=== PATIENT | female | born 1955 | race African-American/Black ===

== ENCOUNTER → 2016-11-12 | Outpatient (CLI) | payer BC ==
[2016-11-12 14:44] LABS: BILIRUBIN,URINE NEGATIVE (NEG); GLUCOSE,URINE NEGATIVE (NEG); NITRITE,URINE POSITIVE (NEG); PROTEIN,URINE NEGATIVE (NEG-TRACE)
[2016-11-12 15:07] LABS: BACTERIA,URINE MANY /HPF (0-FEW); RBC,URINE 0 /HPF (0-2); SQUAMOUS EPITHELIAL CELL,UR MANY /LPF
== END | disposition home or self-care (01) ==
LOC: LAB 14:15
PROVIDERS: ATTEND Urology
DX: R31.9 Hematuria, unspecified (principal)
CPT/HCPCS: 81001; 87086

== ENCOUNTER → 2016-12-03 | Outpatient (CLI) | payer BC ==
[~2016-12-03] MED LIST: IOHEXOL 300 MG/ML 75 ML VIAL ONE
[2016-12-03 14:02] LABS: CREATININE 1.1 mg/dL (0.6-1.0); GFR 61.5
--- NOTE | 2016-12-03 17:07 | RAD ---
Examination: CT of the abdomen pelvis without and with IV contrast History: History of foul-smelling urine and breath, dark-colored urine Comparison: None available Technique: Axial CT images of the abdomen pelvis were performed without and with IV contrast. Coronal sagittal reformats are performed. Delayed axial images were performed PQRS Compliance Statement: One or more of the following individualized dose reduction techniques were utilized for this examination: 1. Automated exposure control 2. Adjustment of the mA and/or kV according to patient size 3. Use of iterative reconstruction technique Findings: Minimal bibasal lung atelectasis. No evidence of free air identified in the abdomen. The visualized liver, spleen, adrenals grossly appears unremarkable. The gallbladder is mildly distended. No evidence of intrarenal collecting system calculi identified. Small hiatal hernia. The stomach is mildly distended. The small bowel is nondilated. Feces and gas noted throughout the colon. Few sigmoid colon diverticulosis. The visualized pancreas grossly appears unremarkable. The urinary bladder is mildly distended. No evidence of filling defect identified in the urinary bladder. Mild degenerative changes lumbar spine. Moderate aortic atherosclerosis. Subcutaneous moderate fat stranding identified in the anterior abdominal wall in the left lower quadrant. Impression: 1. No acute intra-abdominal findings. There is moderate inflammatory fat stranding identified in the subcutaneous disease of the left lower anterior abdominal wall, nonspecific could be secondary to cellulitis or infection. Correlate clinically. 2. Sigmoid colon diverticulosis.
== END | disposition home or self-care (01) ==
LOC: CT 13:13
PROVIDERS: ATTEND Urology
DX: R31.9 Hematuria, unspecified (principal); M47.896 Other spondylosis, lumbar region
CPT/HCPCS: 36415; 74178; 82565; Q9967

== ENCOUNTER 2017-08-26 21:15 | Inpatient (IN) | payer BC ==
[~2017-08-26 21:15] MED LIST changes: +ATROPINE 0.5 MG/5 ML DISP.SYRIN.; +CALCIUM CHLORIDE 1,000 MG/10 ML DISP.SYRIN IV; +EPINEPHrine 1 MG/ML VIAL; +EPINEPHrine SYRINGE 1 MG/10 ML SYRINGE; -IOHEXOL 300 MG/ML 75 ML VIAL ONE; +SODIUM BICARB ADULT 8.4% 50 MEQ/50 ML DISP.SYRIN.
[2017-08-26] MEDS: EPINEPHrine SYRINGE 1 MG/10 ML SYRINGE IV ×3 (21:19→21:33)
[2017-08-26] MEDS: ATROPINE 0.5 MG/5 ML DISP.SYRIN. IV ×2 (21:22→21:38)
[2017-08-26 21:41] LABS: TROPONIN BY ISTAT 0.57 ng/ml (<0.08)
[2017-08-26] MEDS: SODIUM BICARB ADULT 8.4% 50 MEQ/50 ML DISP.SYRIN. IV ×2 (21:46→22:13)
[2017-08-26] MEDS: CALCIUM CHLORIDE 1,000 MG/10 ML DISP.SYRIN IV (21:46)
[2017-08-26 21:53] LABS: AGAP ISTAT 23 mmol/L (6-14); BUN ISTAT 22 mg/dL (8-26); CHLORIDE ISTAT 112 mmol/L (98-110); CREATININE ISTAT 1.7 mg/dL (0.5-1.4); GLUCOSE ISTAT 249 mg/dL (70-99); HEMATOCRIT ISTAT 36 % (36-40); HEMOGLOBIN ISTAT 12.2 g/dL (12-15); ION CA ISTAT 1.04 mmol/L (1.13-1.32); POTASSIUM ISTAT 5.5 mmol/L (3.5-5.0); SODIUM ISTAT 142 mmol/L (135-145); TOT CO2 ISTAT 13 mmol/L (23-32)
[2017-08-26] MEDS ORDERED: EPINEPHrine VIAL 30 MG/30 ML VIAL (22:00)
[2017-08-26] MEDS ORDERED: EPINEPHrine SYRINGE 1 MG/10 ML SYRINGE (22:00)
[2017-08-26] MEDS ORDERED: SODIUM BICARB ADULT 8.4% 50 MEQ/50 ML DISP.SYRIN. (22:00)
[2017-08-26] MEDS ORDERED: ATROPINE 1 MG/10 ML DISP.SYRIN (22:00)
[2017-08-26 22:01] LABS: BASO # 0.1 x10^3/uL (0.0-0.2); BASO % 0 % (0-3); EOS # 0.2 x10^3/uL (0.0-0.7); EOS % 1 % (0-3); HEMATOCRIT 26.9 % (36.0-47.0); HEMOGLOBIN 8.3 g/dL (12.0-15.5); LYMPH # 4.5 x10^3/uL (1.0-4.8); LYMPH % 19 % (24-48); MEAN CORPUSCULAR HEMOGLOBIN 29 pg (25-35); MEAN CORPUSCULAR HGB CONC 31 g/dL (31-37); MEAN CORPUSCULAR VOLUME 95 fL (79-100); MONO # 0.9 x10^3/uL (0.0-1.1); MONO % 4 % (0-9); NEUT # 17.3 x10^3uL (1.8-7.7); NEUT % 75 % (31-73); PLATELET COUNT 67 x10^3/uL (140-400); RED BLOOD COUNT 2.82 x10^6/uL (3.50-5.40); RED CELL DISTRIBUTION WIDTH 13.9 % (11.5-14.5)
[2017-08-26 22:02] LABS: ADD MAN DIFF? YES
[2017-08-26 22:10] LABS: INR 2.4 (0.8-1.1); PROTHROMBIN TIME PATIENT 24.3 SEC (11.7-14.0)
[2017-08-26] MEDS ORDERED: NOREPINEPHRIN PREMIX 250 ML IV (22:11)
[2017-08-26] MEDS ORDERED: CONTRAST GIVEN MC (22:15)
[2017-08-26] MEDS ORDERED: IOHEXOL 300 MG/ML 100ML VIAL. IV (22:15)
[2017-08-26] MEDS ORDERED: MIDAZOLAM HCL/PF 5 MG/5 ML VIAL. (22:17)
[2017-08-26] MEDS: MIDAZOLAM HCL/PF 5 MG/5 ML VIAL. IV (22:20)
[2017-08-26 22:21] LABS: % BANDS 13 % (0-9); % EOS 1 % (0-5); % LYMPHS 20 % (24-48); % MONOS 3 % (0-10); % SEGS 63 % (35-66); NUCLEATED RBC 1
[2017-08-26 22:23] LABS: PLT ESTIMATE DECREASED (ADEQUATE); POLYCHROMASIA SLIGHT; TOXIC GRANULATION SLIGHT
[2017-08-26 22:26] LABS: ALBUMIN 2.1 g/dL (3.4-5.0); ALBUMIN/GLOBULIN RATIO 0.6 (1.0-1.7); ALK PHOS 142 U/L (46-116); ANION GAP 24 (6-14); BLOOD UREA NITROGEN 19 mg/dL (7-20); BUN/CREATININE RATIO 9 (6-20); CARBON DIOXIDE 17 mmol/L (21-32); CHLORIDE 108 mmol/L (98-107); CREATININE 2.1 mg/dL (0.6-1.0); GFR 29.1; GLUCOSE 215 mg/dL (70-99); MAGNESIUM 2.8 mg/dL (1.8-2.4); POTASSIUM 5.5 mmol/L (3.5-5.1); SODIUM 149 mmol/L (136-145); TOTAL BILIRUBIN 0.9 mg/dL (0.2-1.0); TOTAL PROTEIN 5.4 g/dL (6.4-8.2)
[2017-08-26] MEDS ORDERED: fentaNYL PF VIAL 100 MCG/2 ML VIAL IV (22:30)
[2017-08-26] MEDS ORDERED: PIP/TAZO PER PHARMACY MC (22:30)
[2017-08-26 22:39] LABS: CKMB INDEX 0.7 % (0-4); CKMB MASS 3.7 ng/mL (0.0-3.6); CREATINE KINASE 540 U/L (26-192)
[2017-08-26 22:47] LABS: TROPONINI 1.648 ng/mL (0.000-0.055)
[2017-08-26 23:01] LABS: ALT (SGPT) 11849 U/L (14-59); AST (SGOT) 8678 U/L (15-37); CALCIUM 12.2 mg/dL (8.5-10.1)
[2017-08-26] MEDS: MIDAZOLAM 100MG/100ML PREMIX 100 ML IV (23:04)
[2017-08-26 23:45] LABS: BILIRUBIN,URINE NEGATIVE (NEG); CLARITY,URINE CLEAR; COLOR,URINE YELLOW; GLUCOSE,URINE NEGATIVE (NEG); NITRITE,URINE NEGATIVE (NEG); PROTEIN,URINE 30 mg/dL (NEG-TRACE)
[2017-08-26] MEDS: IV NORMAL SALINE 1000ML BAG 1,000 ML IV (23:45)
[2017-08-26 23:53] LABS: LIPASE 325 U/L (73-393)
[2017-08-26 23:53] LABS: AMYLASE 255 U/L (25-115)
[2017-08-26 23:57] LABS: BACTERIA,URINE MANY /HPF (0-FEW); RBC,URINE OCC /HPF (0-2); SQUAMOUS EPITHELIAL CELL,UR MOD /LPF; WBC,URINE RARE /HPF (0-4)
[2017-08-27] MEDS: VASOPRESSIN 40 UNIT in IV DEXTROSE 5% 100 ML IV (00:08)
[2017-08-27] MEDS: PHENYLEPHRINE INJ 20 MG in IV NORMAL SALINE 250ML 250 ML IV ×2 (00:09→03:23)
[2017-08-27 00:10] LABS: BARBITURATES NEG (NEG); BENZODIAZEPINES POS (NEG); CANNABINOIDS NEG (NEG); COCAINE NEG (NEG); METHADONE NEG (NEG); OPIATES NEG (NEG); PHENCYCLIDINE NEG (NEG)
[2017-08-27 00:12] LABS: AMPHETAMINE/METHAMPHETAMINE NEG (NEG); ETHANOL, URINE NEG (NEG)
[2017-08-27 00:13] LABS: NT-PRO BNP 880 pg/mL (0-124)
[2017-08-27 00:22] LABS: LACTIC ACID 17.1 mmol/L (0.4-2.0)
[2017-08-27 00:22] LABS: LACTIC ACID 18.8 mmol/L (0.4-2.0)
[2017-08-27 00:26] LABS: PCO2 ABG 37 mmHg (35-46); PH ABG 6.96 (7.35-7.45); PO2 ABG 161 mmHg (65-108)
[2017-08-27 00:27] LABS: BASE EXCESS ABG -22 mmol/L (-3-3); BODY TEMP ABG 91.1 DEG; CORRECTED PCO2 ABG 31 mmHg; CORRECTED PH ABG 7.01; CORRECTED PO2 ABG 139 mmHg; FIO2 ABG 100; HCO3 ABG 8 mmol/L (21-28); SAT O2 ABG 97 % (92-99)
[2017-08-27 00:28] LABS: ALLEN TEST POS; O2 DELIVERY DEVICE VENT
[2017-08-27] MEDS: IV NORMAL SALINE 1000ML BAG 1,000 ML IV ×2 (00:35→01:42)
[2017-08-27 00:42] LABS: ADD MAN DIFF? NO
[2017-08-27] MEDS: SODIUM BICARB ADULT 8.4% 50 MEQ/50 ML DISP.SYRIN. IV ×2 (00:42)
[2017-08-27 00:46] LABS: BASO # 0.2 x10^3/uL (0.0-0.2); BASO % 1 % (0-3); EOS # 0.1 x10^3/uL (0.0-0.7); EOS % 1 % (0-3); LYMPH # 4.6 x10^3/uL (1.0-4.8); LYMPH % 18 % (24-48); MEAN CORPUSCULAR HEMOGLOBIN 30 pg (25-35); MEAN CORPUSCULAR HGB CONC 31 g/dL (31-37); MEAN CORPUSCULAR VOLUME 96 fL (79-100); MONO # 0.7 x10^3/uL (0.0-1.1); MONO % 3 % (0-9); NEUT # 19.3 x10^3uL (1.8-7.7); NEUT % 78 % (31-73); PLATELET COUNT 123 x10^3/uL (140-400); RED BLOOD COUNT 1.94 x10^6/uL (3.50-5.40); RED CELL DISTRIBUTION WIDTH 13.8 % (11.5-14.5); WHITE BLOOD COUNT 24.9 x10^3/uL (4.0-11.0)
[2017-08-27 00:49] LABS: HEMATOCRIT 18.7 % (36.0-47.0); HEMOGLOBIN 5.7 g/dL (12.0-15.5)
[2017-08-27] MEDS ORDERED: IV NORMAL SALINE 1000ML BAG 1,000 ML IV (01:05)
[2017-08-27] MEDS: SODIUM BICARBONATE VIAL 150 MEQ in IV DEXTROSE 5% 1,000 ML IV (01:14)
[2017-08-27] MEDS ORDERED: fentaNYL PF VIAL 100 MCG/2 ML VIAL IV (01:15)
[2017-08-27] MEDS ORDERED: MINERAL OIL/PETROLATUM,WHITE OPHTH OINT 3.5GM TUBE. OU (01:15)
[2017-08-27] MEDS ORDERED: MEPERIDINE PF 25 MG/ML VIAL. IV (01:15)
[2017-08-27] MEDS ORDERED: 0.9 % SODIUM CHLORIDE 10 ML DISP.SYRIN. IV (01:15)
[2017-08-27] MEDS ORDERED: PROPOFOL 100 ML IV (01:15)
[2017-08-27] MEDS ORDERED: VECURONIUM BOLUS 10 MG VIAL. IV (01:15)
[2017-08-27] MEDS: PIPERACILLIN/TAZOBACTAM 2.25 GM in IV NORMAL SALINE 50ML 50 ML IV (02:01)
[2017-08-27 02:25] LABS: ANION GAP 29 (6-14); BLOOD UREA NITROGEN 21 mg/dL (7-20); CALCIUM 8.1 mg/dL (8.5-10.1); CARBON DIOXIDE 12 mmol/L (21-32); CHLORIDE 113 mmol/L (98-107); CREATININE 2.1 mg/dL (0.6-1.0); GFR 29.1; GLUCOSE 148 mg/dL (70-99); POTASSIUM 4.5 mmol/L (3.5-5.1); SODIUM 154 mmol/L (136-145)
[2017-08-27] MEDS: NOREPINEPHRIN PREMIX 250 ML IV ×2 (02:34→03:00)
[2017-08-27] MEDS: VANCOMYCIN 2 GM in IV DEXTROSE 5 %-0.2 % NACL 500 ML IV (02:35)
[2017-08-27 02:45] LABS: IMMEDIATE SPIN CROSSMATCH 1
[2017-08-27] MEDS: MIDAZOLAM HCL/PF 2 MG/2 ML VIAL. IV (03:00)
[2017-08-27 03:10] LABS: IMMEDIATE SPIN CROSSMATCH 1 4
[2017-08-27] MEDS: VANCOMYCIN PER PHARMACY MC (03:27)
[2017-08-27] MEDS ORDERED: EPINEPHrine 1 MG/ML VIAL ×2 (04:22→04:23)
[2017-08-27] MEDS ORDERED: ACETAMINOPHEN 650 MG/20.3 ML SOLUTION. NG (06:00)
[2017-08-27] MEDS ORDERED: ASPIRIN 300 MG SUPP.RECT PR (09:00)
[2017-08-27] MEDS ORDERED: FAMOTIDINE 20 MG/2 ML VIAL IVP (09:00)
[2017-08-27] MEDS ORDERED: CHLORHEXIDINE 0.12% 15 ML MOUTHWASH. MM (09:00)
[2017-08-28] MEDS ORDERED: ACETAMINOPHEN 650 MG/20.3 ML SOLUTION. NG (01:15)
[2017-08-28] MEDS ORDERED: ACETAMINOPHEN 650 MG SUPP.RECT. PR (01:15)
[2017-08-28] MEDS ORDERED: VANCOMYCIN 1.5 GM in IV DEXTROSE 5 %-0.2 % NACL 500 ML IV (02:30)
[2017-08-29] MEDS ORDERED: ELECTROLYTE (ICU) PROTOCOL. MC (01:15)
== END 2017-08-27 08:26 | disposition expired | DRG 963 ==
LOC: ER 21:15 → 1 WEST ICU 21:53
PROVIDERS: Family Medicine
PROC: 5A12012 Performance of Cardiac Output, Single, Manual (ICD-10-PCS; principal; 2017-08-26)
PROC: 5A1935Z Respiratory Ventilation, Less than 24 Consecutive Hours (ICD-10-PCS; 2017-08-26)
PROC: 06HM33Z Insertion of Infusion Device into Right Femoral Vein, Percutaneous Approach (ICD-10-PCS; 2017-08-26)
PROC: 0BH17EZ Insertion of Endotracheal Airway into Trachea, Via Natural or Artificial Opening (ICD-10-PCS; 2017-08-26)
PROC: 30233L1 Transfusion of Nonautologous Fresh Plasma into Peripheral Vein, Percutaneous Approach (ICD-10-PCS; 2017-08-27)
PROC: 30233N1 Transfusion of Nonautologous Red Blood Cells into Peripheral Vein, Percutaneous Approach (ICD-10-PCS; 2017-08-27)
PROC: 30233K1 Transfusion of Nonautologous Frozen Plasma into Peripheral Vein, Percutaneous Approach (ICD-10-PCS; 2017-08-27)
DX: S27.329A Contusion of lung, unspecified, initial encounter (principal); J18.9 Pneumonia, unspecified organism; S36.039A Unspecified laceration of spleen, initial encounter; S22.42XA Multiple fractures of ribs, left side, initial encounter for closed fracture; J96.00 Acute respiratory failure, unspecified whether with hypoxia or hypercapnia; I46.9 Cardiac arrest, cause unspecified; R57.8 Other shock; G93.1 Anoxic brain damage, not elsewhere classified; D69.6 Thrombocytopenia, unspecified; J98.11 Atelectasis; I50.9 Heart failure, unspecified; X58.XXXA Exposure to other specified factors, initial encounter; E66.01 Morbid (severe) obesity due to excess calories; D64.9 Anemia, unspecified; D72.829 Elevated white blood cell count, unspecified; E11.9 Type 2 diabetes mellitus without complications; Z88.2 Allergy status to sulfonamides; Z68.34 Body mass index [BMI] 34.0-34.9, adult; Y93.89 Activity, other specified; Y92.89 Other specified places as the place of occurrence of the external cause; Y99.8 Other external cause status
CPT/HCPCS: 31500; 31720; 36415; 36556; 36600; 51702; 70450; 71045; 71275; 80047; 80048; 80053; 80307; 81001; 82150; 82553; 82805; 83605; 83690; 83735; 83880; 84484; 85007; 85025; 85610; 86850; 86900; 86901; 86920; 86927; 87040; 87086; 87186; 93005; 94002; 94760; 96365; 96375; 96376; 99291-25; 99292; J0171; J0461; J2250; J2543; J3010; J3370; J3490; J7030; J7050; P9016; P9017